=== PATIENT | male | born 1970 | race African-American/Black ===

== ENCOUNTER 2019-03-17 12:52 | Emergency (ER) | payer BC, OTHER ==
[2019-03-17 12:56] VITALS: BP 149/96; PULSE 121; TEMP 99; BMI 36.3
[2019-03-17] MEDS ORDERED: DEXAMETHASONE LIQUID 0.5 MG/5 ML PO ONE (13:13)
[2019-03-17] MEDS ORDERED: ACETAMINOPHEN 500 MG TABLET (FP) PO ONE (13:14)
[2019-03-17] MEDS ORDERED: ACETAMINOPHEN 500 MG TABLET (FP) ONE (13:21)
[2019-03-17] MEDS ORDERED: DEXAMETHASONE SOD PHOSPHATE 10 MG/1 ML VIAL ONE (13:21)
--- NOTE | 2019-03-17 13:51 | PDOC ---
History of Present Illness - General Chief Complaint: Sore Throat Stated Complaint: bodyaches/sore throat Time Seen by Provider: 03/17/19 13:02 - History of Present Illness Initial Comments: 03/17/19 13:49 48-year-old male with a past medical history of diabetes presents for worsening sore throat and fever x1 day Past History - Past Medical History Allergies/Adverse Reactions: Allergies Allergy/AdvReac Type Severity Reaction Status Date / Time No Known Allergies Allergy Verified 03/17/19 12:56 Home Medications: Ambulatory Orders Glimepiride [Amaryl] 4 mg PO BID 10/02/11 Insulin Glargine,Hum.rec.anlog [Lantus] 10 unit SQ AM 10/02/11 Insulin Regular [Novolin R Vial -] 0 unit SQ DAILY PRN 10/02/11 Olmesartan/Amlodipin/Hcthiazid [Tribenzor 40-5-12.5 mg Tablet] 1 each PO DAILY 10/02/11 Prasugrel Hydrochloride [Effient -] 10 mg PO DAILY 10/02/11 Cephalexin [Keflex] 500 mg PO TID #30 capsule 01/17/14 Penicillin V Potassium [Pen Vee K -] 500 mg PO QID #40 tablet 03/17/19 COPD: No Diabetes: Yes HTN: Yes - Surgical History Abdominal Surgery: Yes (HERNIA REPAIR) - Psycho Social/Smoking Cessation Hx Smoking Status: No Smoking History: Current every day smoker Have you smoked in the past 12 months: No Number of Cigarettes Smoked Daily: 5 Information on smoking cessation initiated: No Hx Alcohol Use: No Drug/Substance Use Hx: No Review of Systems - Review of Systems Constitutional: Yes: Fever HEENTM: Yes: Throat Pain, Difficulty Swallowing *Physical Exam - Vital Signs Last Vital Signs Temp Pulse Resp BP Pulse Ox 99 F 121 H 18 149/96 97 03/17/19 12:53 03/17/19 12:53 03/17/19 12:53 03/17/19 12:53 03/17/19 12:53 - Physical Exam 03/17/19 13:49 GENERAL: The patient is awake, alert, and fully oriented, in no acute distress. HEAD: Normal with no signs of trauma. EYES: sclera anicteric, conjunctiva clear. ENT: Ears normal tympanic membranes normal oropharynx erythemic without exudate uvula midline NECK: Normal range of motion LUNGS: Breath sounds equal, clear to auscultation bilaterally. No wheezes, and no crackles. HEART: S1 and S2 without murmur, rub or gallop. ABDOMEN: Soft, nontender, normoactive bowel sounds. No guarding, no rebound. No masses. EXTREMITIES: Normal range of motion, no edema. No clubbing or cyanosis. No cords, erythema, or tenderness. NEUROLOGICAL: Cranial nerves II through XII grossly intact. Normal speech, normal gait. PSYCH: Normal mood, normal affect. SKIN: Warm, Dry, normal turgor, no rashes or lesions noted. ED Treatment Course - Medications Given in the ED: ED Medications Discontinued Medications Generic Name Dose Route Start Last Admin Trade Name Tanner PRN Reason Stop Dose Admin Acetaminophen 1,000 mg 03/17/19 13:14 03/17/19 13:25 Tylenol - PO 03/17/19 13:15 1,000 mg ONCE ONE Administration Dexamethasone 10 mg 03/17/19 13:13 03/17/19 13:24 Decadron Liquid - PO 03/17/19 13:14 10 mg ONCE ONE Administration Medical Decision Making - Medical Decision Making 03/17/19 13:49 Negative rapid strep. History consistent with strep pharyngitis we will treat presumptively because of diabetes cussed use of steroids and pain control 1 dose of Decadron given patient will adjust insulin accordingly. Follow-up with primary care physician Discharge - Discharge Information Problems reviewed: Yes Clinical Impression/Diagnosis: Acute pharyngitis Condition: Stable Disposition: HOME - Admission No - Additional Discharge Information Prescriptions: Penicillin V Potassium [Pen Vee K -] 500 mg PO QID #40 tablet - Follow up/Referral Referrals: Stevan Collins MD [Staff Physician] - - Patient Discharge Instructions Additional Instructions: Please take the antibiotics as directed and finish the entire 10-day course. Return to the emergency room for worsening symptoms and without fail follow-up with your primary care physician in 2 to 3 days for further evaluation and treatment options. - Post Discharge Activity
== END 2019-03-17 13:56 | disposition home or self-care (01) ==
LOC: JERFT 12:52
DX: J02.9 Acute pharyngitis, unspecified (principal); I10 Essential (primary) hypertension; E10.9 Type 1 diabetes mellitus without complications; Z79.4 Long term (current) use of insulin
CPT/HCPCS: 87070; 87880; 99281-25

== ENCOUNTER 2019-03-18 13:53 | Inpatient (IN) | payer BC ==
[2019-03-18] MEDS ORDERED: PENICILLIN V POTASSIUM 250 MG/5 ML 100 ML BOTTLE PO ONE (15:34)
[2019-03-18] MEDS ORDERED: KETOROLAC TROMETHAMINE 30 MG/1 ML VIAL IM ONE (15:34)
[2019-03-18] MEDS ORDERED: KETOROLAC TROMETHAMINE 30 MG/1 ML VIAL ONE (15:39)
--- NOTE | 2019-03-18 18:32 | PDOC ---
History of Present Illness - General Chief Complaint: Sore Throat Stated Complaint: SORE THROAT Time Seen by Provider: 03/18/19 14:37 History Source: Patient Exam Limitations: No Limitations - History of Present Illness Initial Comments: 03/18/19 18:27 48 year old male with history of DM, HTN, and chol presents for sorethroat. Patient reports sorethroat x 5 days seen yesterday for the same given decadron and penvk but reports pain today preventing him from taking prescribed medication. Complaining of pain especially with swallowing. Denies difficulty breathing. Denies fever or chills Is this a multiple visit Asthma Patient?: No Timing/Duration: 1 week Severity: moderate Modifying Factors: improves with: medication Aspirin Received prior to arrival: Yes: no aspirin today Asa Contraindications(Core Measure): No: Allergy Beta Katya Given by EMS(Core Measure): No Beta Katya Taken at Home(Core Measure): No Beta Katya Not Indicated at this Time(Core Measure): No Past History - Travel Traveled outside of the country in the last 30 days: No Close contact w/someone who was outside of country & ill: No - Past Medical History Allergies/Adverse Reactions: Allergies Allergy/AdvReac Type Severity Reaction Status Date / Time No Known Allergies Allergy Verified 03/18/19 14:00 Home Medications: Ambulatory Orders Glimepiride [Amaryl] 4 mg PO BID 10/02/11 Insulin Glargine,Hum.rec.anlog [Lantus] 10 unit SQ AM 10/02/11 Insulin Regular [Novolin R Vial -] 0 unit SQ DAILY PRN 10/02/11 Olmesartan/Amlodipin/Hcthiazid [Tribenzor 40-5-12.5 mg Tablet] 1 each PO DAILY 10/02/11 Prasugrel Hydrochloride [Effient -] 10 mg PO DAILY 10/02/11 Cephalexin [Keflex] 500 mg PO TID #30 capsule 01/17/14 Penicillin V Potassium [Pen Vee K -] 500 mg PO QID #40 tablet 03/17/19 COPD: No Diabetes: Yes HTN: Yes - Surgical History Abdominal Surgery: Yes (HERNIA REPAIR) - Psycho Social/Smoking Cessation Hx Smoking Status: No Smoking History: Never smoked Have you smoked in the past 12 months: No Number of Cigarettes Smoked Daily: 5 Hx Alcohol Use: No Drug/Substance Use Hx: No Review of Systems - Review of Systems Able to Perform ROS?: Yes Is the patient limited Barbadian proficient: No Constitutional: No: Chills, Fever HEENTM: Yes: Throat Pain, Difficulty Swallowing. No: Nose Congestion Respiratory: No: Orthopnea, Shortness of Breath, Wheezing Cardiac (ROS): No: Chest Pain ABD/GI: No: Poor Appetite, Vomiting, Indigestion : No: Dysuria, Discharge, Testicular Pain Musculoskeletal: No: Joint Pain, Muscle Weakness Integumentary: No: Bruising, Erythema *Physical Exam - Vital Signs Last Vital Signs Temp Pulse Resp BP Pulse Ox 98.8 F 92 H 18 177/100 H 98 03/18/19 13:56 03/18/19 13:56 03/18/19 13:56 03/18/19 13:56 03/18/19 13:56 - Physical Exam General Appearance: Yes: Nourished, Appropriately Dressed HEENT: positive: Pharyngeal Erythema. negative: Tonsillar Exudate, Rhinorrhea Neck: positive: Supple. negative: Lymphadenopathy (R), Lymphadenopathy (L) Respiratory/Chest: positive: Lungs Clear Cardiovascular: positive: Regular Rhythm, Regular Rate Extremity: positive: Normal Capillary Refill Neurologic: positive: Fully Oriented ED Treatment Course - RADIOLOGY Radiology Studies Ordered: Category Date Time Status SOFT TISSUE NECK CT W/O CONTR [CT] Stat CT Scan 03/18/19 15:33 Taken - Medications Given in the ED: ED Medications Discontinued Medications Generic Name Dose Route Start Last Admin Trade Name Freq PRN Reason Stop Dose Admin Ketorolac Tromethamine 30 mg 03/18/19 15:34 03/18/19 15:44 Toradol Injection - IM 03/18/19 15:35 30 mg ONCE ONE Administration Penicillin V Potassium 500 mg 03/18/19 15:34 03/18/19 16:00 Pen Vee K Suspension - PO 03/18/19 15:35 500 mg ONCE ONE Administration Medical Decision Making - Medical Decision Making 03/18/19 18:31 48 year old male with history of DM, HTN, and chol presents for sorethroat. Patient reports sorethroat x 5 days seen yesterday for the same given decadron and penvk but reports pain today preventing him from taking prescribed medication. Complaining of pain especially with swallowing. Denies difficulty breathing. Denies fever or chills. Impresssion: Pharyngitis throat culture negative for strep Plan: toradol im pen vk 1 dose given in ed cat scan to r/o abscess 03/18/19 19:06 cat scan: epiglottitis 03/18/19 20:[address] Ocasio, recommend admission for observation of airway. Case reported off to Silvano Hernandez and Charge nurse Reji Discharge - Discharge Information Problems reviewed: Yes Clinical Impression/Diagnosis: Acute epiglottitis Qualifiers: Airway obstruction: without obstruction Qualified Code(s): J05.10 - Acute epiglottitis without obstruction Condition: Good Disposition: TRANSFER ACUTE CARE/OTHER HOSP - Admission Yes - Follow up/Referral Referrals: Oleg Strauss MD [Primary Care Provider] - Call tomorrow (follow up for epiglottis) - Patient Discharge Instructions Patient Printed Discharge Instructions: DI for Epiglottitis-Adult Additional Instructions: May gargle with warm salt water Drink plenty fluids Take ibuprofen and antibiotics as prescribed Return to emergency room for difficulty breathing - Post Discharge Activity Work/Back to School Note: Back to Work
--- NOTE | 2019-03-18 19:50 | PDOC ---
*Physical Exam - Vital Signs Last Vital Signs Temp Pulse Resp BP Pulse Ox 98.8 F 92 H 18 177/100 H 98 03/18/19 13:56 03/18/19 13:56 03/18/19 13:56 03/18/19 13:56 03/18/19 13:56 - Physical Exam General Appearance: Yes: Appropriately Dressed. No: Apparent Distress HEENT: positive: TMs Normal, Muffled/Hoarse voice, Pharyngeal Erythema. negative: Tonsillar Exudate, Tonsillar Erythema Neck: positive: Trachea midline, Supple. negative: Stridor Respiratory/Chest: positive: Lungs Clear, Normal Breath Sounds. negative: Respiratory Distress, Accessory Muscle Use ED Treatment Course - Medications Given in the ED: ED Medications Discontinued Medications Generic Name Dose Route Start Last Admin Trade Name Freq PRN Reason Stop Dose Admin Ketorolac Tromethamine 30 mg 03/18/19 15:34 03/18/19 15:44 Toradol Injection - IM 03/18/19 15:35 30 mg ONCE ONE Administration Penicillin V Potassium 500 mg 03/18/19 15:34 03/18/19 16:00 Pen Vee K Suspension - PO 03/18/19 15:35 500 mg ONCE ONE Administration ED Progress Note - Progress Note Progress Note: 03/18/19 19:47 Received signout from nurse practitioner Adama. Briefly this is a 48-year-old male past medical history of hypertension, diabetes, hyperlipidemia with second visit for evaluation of sore throat over the past 5 days. Patient had negative rapid strep testing and negative final throat culture. Patient with increased difficulty swallowing and sore throat. Patient received Decadron yesterday during his visit and is received Toradol today. CT of the neck reveals enlarged epiglottis compatible with epiglottitis. Moderately enlarged tonsils. Cannot rule out peritonsillar abscess in a noncontrast exam. Parapharyngeal spaces clear. Borderline to slightly enlarged bilateral lateral upper neck jugular chain lymph nodes Mild reversal of the cervical spine curvature and mild degenerative disc disease at C5-C6. Patient to be monitored overnight until Toradol is fully metabolized. If patient is still having difficulty swallowing at that time will need admission for ENT evaluation. 03/18/19 19:51 Medical Decision Making - Medical Decision Making 03/18/19 20:22 Case has been discussed with Dr. Lazcano who accepts patient for observation. Dr. Rodriguez is requesting patient receive another dose of steroids now prior to admission. 03/19/19 20:13 Discharge - Discharge Information Problems reviewed: Yes Clinical Impression/Diagnosis: Acute epiglottitis Qualifiers: Airway obstruction: without obstruction Qualified Code(s): J05.10 - Acute epiglottitis without obstruction Condition: Good - Admission Yes - Follow up/Referral - Patient Discharge Instructions - Post Discharge Activity
[2019-03-18] MEDS ORDERED: methylPREDNISolone NA SUCC 125 MG/2 ML VIAL IVPUSH ONE (20:23)
[2019-03-18] MEDS ORDERED: methylPREDNISolone NA SUCC 125 MG/2 ML VIAL ONE (21:22)
--- NOTE | 2019-03-18 22:06 | HP ---
Admitting History and Physical - Primary Care Physician PCP: Rio Lazcano - Admission History of Present Illness: 48 year old male with history of DM, HTN, and chol presents for sorethroat. Patient reports sorethroat x 5 days seen yesterday for the same given decadron and penvk but reports pain today preventing him from taking prescribed medication. Complaining of pain especially with swallowing. Denies difficulty breathing. Denies fever or chills - Smoking History Smoking history: Never smoked Have you smoked in the past 12 months: No Aproximately how many cigarettes per day: 5 - Alcohol/Substance Use Hx Alcohol Use: No Home Medications - Allergies Allergies/Adverse Reactions: Allergies Allergy/AdvReac Type Severity Reaction Status Date / Time No Known Allergies Allergy Verified 03/18/19 14:00 - Home Medications Home Medications: Ambulatory Orders Glimepiride [Amaryl] 4 mg PO BID 10/02/11 Penicillin V Potassium [Pen Vee K -] 500 mg PO QID #40 tablet 03/17/19 Amlodipine Besylate 5 mg PO DAILY 03/18/19 Metformin HCl [Glucophage] 500 mg PO ACDIN 03/18/19 Amoxicillin/Potassium Clav [Augmentin 875-125 Tablet] 1 each PO BID #14 tablet 03/20/19 Aspirin 81 mg PO DAILY 03/20/19 Basaglar Kwikpen U-100 25 units SQ ACDIN 03/20/19 Insulin Glargine,Hum.rec.anlog [Basaglar Kwikpen U-100] 15 units SQ ACHS Novolog Pen 15 units SQ BIDAC 03/20/19 Physical Examination Vital Signs: Vital Signs Temperature 98.8 F 03/18/19 13:56 Pulse Rate 92 H 03/18/19 13:56 Respiratory Rate 18 03/18/19 13:56 Blood Pressure 177/100 H 03/18/19 13:56 O2 Sat by Pulse Oximetry (%) 98 03/18/19 21:43 Constitutional: Yes: No Distress HENT: Yes: Atraumatic Neck: Yes: Supple Cardiovascular: Yes: Regular Rate and Rhythm Respiratory: Yes: CTA Bilaterally Gastrointestinal: Yes: Normal Bowel Sounds Extremities: Yes: WNL Neurological: Yes: Alert, Oriented Imaging - Results Cat Scan: Report Reviewed Problem List - Problems (1) Acute epiglottitis Assessment/Plan: iv abx iv steroids npo id consult ent consult Code(s): J05.10 - ACUTE EPIGLOTTITIS WITHOUT OBSTRUCTION Qualifiers: Airway obstruction: without obstruction Qualified Code(s): J05.10 - Acute epiglottitis without obstruction (2) Acute pharyngitis Assessment/Plan: iv abx Code(s): J02.9 - ACUTE PHARYNGITIS, UNSPECIFIED Assessment/Plan Laboratory Results - last 24 hr 03/20/19 03/21/19 03/21/19 21:58 01:39 06:22 POC Glucometer 445 248 207 03/21/19 11:18 POC Glucometer 210
[2019-03-18] MEDS: SODIUM CHLORIDE 1,000 ML IV SCH (23:00)
[2019-03-19] MEDS ORDERED: methylPREDNISolone NA SUCC 40 MG/1 ML VIAL ONE (02:37)
[2019-03-19] MEDS ORDERED: ACETAMINOPHEN INJECTION 100 ML IVPB ONE ×2 (02:38→09:19)
[2019-03-19] MEDS: methylPREDNISolone NA SUCC 40 MG/1 ML VIAL IVPUSH SCH ×4 (03:15→20:54)
[2019-03-19] MEDS: ACETAMINOPHEN 1000 MG/100 ML VIAL (NON FORMULARY) IVPB PRN ×3 (04:08→20:53)
[2019-03-19] MEDS ORDERED: amLODIPine BESYLATE 5 MG TABLET (FP) PO ONE (14:22)
[2019-03-19] MEDS ORDERED: amLODIPine BESYLATE 5 MG TABLET (FP) ONE (14:22)
[2019-03-19] MEDS: SODIUM CHLORIDE 1,000 ML IV SCH ×2 (15:44→23:55)
--- NOTE | 2019-03-19 17:03 | PN ---
Progress Note, Physician History of Present Illness: feeling better - Current Medication List Current Medications: Active Medications Acetaminophen (Ofirmev Injection -) 1,000 mg IVPB Q6H PRN PRN Reason: pain/fever Last Admin: 03/19/19 10:00 Dose: 1,000 mg Sodium Chloride (Normal Saline -) 1,000 mls @ 75 mls/hr IV ASDIR MICHAEL Last Admin: 03/19/19 15:44 Dose: 75 mls/hr Methylprednisolone Sodium Succinate (Solu-Medrol -) 60 mg IVPUSH Q6H-IV MICHAEL Last Admin: 03/19/19 15:44 Dose: 60 mg - Objective Vital Signs: Vital Signs Temperature 97.9 F 03/19/19 14:06 Pulse Rate 76 03/19/19 15:09 Respiratory Rate 15 03/19/19 14:06 Blood Pressure 156/97 03/19/19 15:57 O2 Sat by Pulse Oximetry (%) 97 03/19/19 09:00 Problem List - Problems (1) Acute epiglottitis Assessment/Plan: iv abx iv steroids npo id consult ent consult Code(s): J05.10 - ACUTE EPIGLOTTITIS WITHOUT OBSTRUCTION Qualifiers: Airway obstruction: without obstruction Qualified Code(s): J05.10 - Acute epiglottitis without obstruction
[2019-03-19 17:12] VITALS: BMI 35.2
--- NOTE | 2019-03-19 18:40 | CON.ID ---
Consult Consult Specialty:: infectious diseases Referred by:: Reason for Consultation:: epiglottitis,swelling of the throat,sob - History of Present Illness Chief Complaint: unable to breath pain and swelling of the throat left side History of Present Illness: 48-year-old male past medical history of hypertension, diabetes, hyperlipidemia with second visit for evaluation of sore throat over the past 5 days. Patient had negative rapid strep testing and negative final throat culture. Patient with increased difficulty swallowing and sore throat. He came to ER, strep was negative and he was sent home on VK. At work on Monday , he felt his throat was closing off and neck was swollen. He returned to [facility], CT scan of neck positive for swollen epiglottis. He was admitted for IV ABX and steroids. He is feeling better but still feels pain and swelling on the left side. patient mentions his rt side is worse than the left side. - History Source History Provided By: Patient Limitations to Obtaining History: No Limitations - Alcohol/Substance Use Hx Alcohol Use: No - Smoking History Smoking history: Current every day smoker Have you smoked in the past 12 months: Yes Aproximately how many cigarettes per day: 4 Home Medications - Allergies Allergies/Adverse Reactions: Allergies Allergy/AdvReac Type Severity Reaction Status Date / Time No Known Allergies Allergy Verified 03/18/19 14:00 - Home Medications Home Medications: Ambulatory Orders Glimepiride [Amaryl] 4 mg PO BID 10/02/11 Penicillin V Potassium [Pen Vee K -] 500 mg PO QID #40 tablet 03/17/19 Amlodipine Besylate 5 mg PO DAILY 03/18/19 Metformin HCl [Glucophage] 1,000 mg PO BID 03/18/19 Review of Systems - Review of Systems Constitutional: reports: No Symptoms Eyes: reports: No Symptoms HENT: reports: No Symptoms Neck: reports: Lumps, Swollen Glands Cardiovascular: reports: No Symptoms Respiratory: reports: No Symptoms Gastrointestinal: reports: No Symptoms Genitourinary: reports: No Symptoms Musculoskeletal: reports: No Symptoms Integumentary: reports: No Symptoms Neurological: reports: No Symptoms Endocrine: reports: No Symptoms Hematology/Lymphatic: reports: No Symptoms Psychiatric: reports: No Symptoms Physical Exam Vital Signs: Vital Signs Temperature 98.2 F 03/19/19 17:12 Pulse Rate 85 01/14/20 17:12 Respiratory Rate 19 03/19/19 17:12 Blood Pressure 145/108 H 03/19/19 17:12 O2 Sat by Pulse Oximetry (%) 97 03/19/19 09:00 Constitutional: Yes: Calm, Mild Distress Eyes: Yes: Conjunctiva Clear HENT: Yes: Pharyngeal Erythema, Other (epiglottitis) Neck: Yes: Supple, Trachea Midline Cardiovascular: Yes: Regular Rate and Rhythm Respiratory: Yes: Regular, CTA Bilaterally Gastrointestinal: Yes: Normal Bowel Sounds, Soft Musculoskeletal: Yes: WNL Extremities: Yes: WNL Neurological: Yes: Alert, Oriented Psychiatric: Yes: Alert, Oriented Imaging - Results Cat Scan: Report Reviewed, Image Reviewed Assessment/Plan Problem List - Problems (1) Acute epiglottitis Code(s): J05.10 - ACUTE EPIGLOTTITIS WITHOUT OBSTRUCTION Qualifiers: Airway obstruction: without obstruction Qualified Code(s): J05.10 - Acute epiglottitis without obstruction throat pain plan will start patient on abx await for ent rest as per the team
[2019-03-19] MEDS ORDERED: PIPERACILLIN/TAZOBACTAM 3.375 GM VIAL IVPB ONE (18:50)
[2019-03-19] MEDS ORDERED: DEXTROSE 5%-WATER - 50 ML IVPB ONE (18:50)
[2019-03-19] MEDS: PIPERACILLIN/TAZOB 3.375 GM 3.375 GM in DEXTROSE 5%-WATER - 50 ML IVPB SCH (18:53)
[2019-03-20] MEDS ORDERED: PIPERACILLIN/TAZOBACTAM 3.375 GM VIAL IVPB ONE ×3 (01:32→19:37)
[2019-03-20] MEDS ORDERED: DEXTROSE 5%-WATER - 50 ML IVPB ONE ×2 (01:32→19:37)
[2019-03-20] MEDS ORDERED: hydrALAZINE HCL 10 MG TABLET PO ONE (01:45)
[2019-03-20] MEDS: PIPERACILLIN/TAZOB 3.375 GM 3.375 GM in DEXTROSE 5%-WATER - 50 ML IVPB SCH ×3 (02:01→19:52)
[2019-03-20] MEDS: methylPREDNISolone NA SUCC 40 MG/1 ML VIAL IVPUSH SCH ×3 (02:01→14:10)
[2019-03-20] MEDS: ACETAMINOPHEN 1000 MG/100 ML VIAL (NON FORMULARY) IVPB PRN (07:23)
[2019-03-20] MEDS ORDERED: DEXTROSE 5%-WATER - 100 ML IVPB ONE (09:10)
--- NOTE | 2019-03-20 09:13 | CON.ENT ---
Consult Consult Specialty:: ENT Reason for Consultation:: Sore throat/trouble swallowing - History of Present Illness Chief Complaint: Progressive sore throat/throat swelling History of Present Illness: 48 yo male in [place] until this past weekend when he developed a sore throat with trouble swallowing and swollen feeling in his throat. He came to ER, strep was negative and he was sent home on Pen VK. At work on Monday , he felt his throat was closing off and neck was swollen. He returned to [facility], CT scan of neck positive for swollen epiglottis. He was admitted for IV ABX and steroids. He is feeling better but still feels pain and swelling on the left side. - History Source History Provided By: Patient Limitations to Obtaining History: No Limitations - Past Medical History Endocrine: Yes: Diabetes Mellitus - Alcohol/Substance Use Hx Alcohol Use: No - Smoking History Smoking history: Current every day smoker Have you smoked in the past 12 months: Yes Aproximately how many cigarettes per day: 4 Home Medications - Allergies Allergies/Adverse Reactions: Allergies Allergy/AdvReac Type Severity Reaction Status Date / Time No Known Allergies Allergy Verified 03/18/19 14:00 - Home Medications Home Medications: Ambulatory Orders Glimepiride [Amaryl] 4 mg PO BID 10/02/11 Penicillin V Potassium [Pen Vee K -] 500 mg PO QID #40 tablet 03/17/19 Amlodipine Besylate 5 mg PO DAILY 03/18/19 Metformin HCl [Glucophage] 1,000 mg PO BID 03/18/19 Review of Systems - Review of Systems HENT: reports: Difficult Swallowing, Throat Pain Neck: reports: Swollen Glands, Tenderness Respiratory: reports: No Symptoms Physical Exam-ENT Vital Signs: Vital Signs Temperature 98 F 03/20/19 06:00 Pulse Rate 82 03/20/19 06:00 Respiratory Rate 03/20/19 06:00 Blood Pressure 145/107 H 03/20/19 06:00 O2 Sat by Pulse Oximetry (%) 97 03/19/19 21:00 Constitutional: Yes: Well Nourished, No Distress, Calm Head: Yes: WNL Face: Yes: WNL Eyes: Yes: WNL, EOM Intact Nose: Yes: Boggy, Pale Nasal Passage: Yes: Pale Oral/Pharynx: Yes: Other (No exudate or edema) Neck: Yes: Lymphadenopathy, Tenderness Respiratory: Yes: WNL Musculoskeletal: Yes: WNL Extremities: Yes: WNL Neurological: Yes: Cran Nerves II-XII Intact Imaging - Results Cat Scan: Report Reviewed, Image Reviewed Problem List - Problems (1) Acute epiglottitis Assessment/Plan: Pt with acute epiglottis with edema of lingual surface, no airway compromise. He is feeling better with improvement of symptoms since on IV Abx and steroids. Would continue IV for 24 hours and switch to PO antibiotics and steroids as per ID if he continues to improve. Follow-up with ENT as outpatient in 1 week. Code(s): J05.10 - ACUTE EPIGLOTTITIS WITHOUT OBSTRUCTION Qualifiers: Airway obstruction: without obstruction Qualified Code(s): J05.10 - Acute epiglottitis without obstruction Procedure Note Procedure: FIBEROPTIC FLEXIBLE LARYNGOSCOPY: After obtaining verbal consent, topical anesthetic spray intra nasally. Scope passed into nasopharynx, non sinus pathology noted. Edema of lingual surface of the epiglottis (L>R) with left sided ulceration. Laryngeal side normal with patent airway. Normal VC motion noted. No other airway edema noted. Pt tolerated procedure well.
--- NOTE | 2019-03-20 09:26 | PN ---
Progress Note, Physician History of Present Illness: patient stable no new issues swelling improving - Current Medication List Current Medications: Active Medications Sodium Chloride (Normal Saline -) 1,000 mls @ 75 mls/hr IV ASDIR MICHAEL Last Admin: 03/19/19 23:55 Dose: Not Given Piperacillin Sod/Tazobactam (Sod 3.375 gm/ Dextrose) 50 mls @ 100 mls/hr IVPB Q8H-IV MICHAEL; Protocol Last Admin: 03/20/19 02:01 Dose: 100 mls/hr Methylprednisolone Sodium Succinate (Solu-Medrol -) 60 mg IVPUSH Q6H-IV MICHAEL Last Admin: 03/20/19 02:01 Dose: 60 mg - Objective Vital Signs: Vital Signs Temperature 98 F 03/20/19 06:00 Pulse Rate 82 03/20/19 06:00 Respiratory Rate 20 03/20/19 06:00 Blood Pressure 145/107 H 03/20/19 06:00 O2 Sat by Pulse Oximetry (%) 97 03/19/19 21:00 Constitutional: Yes: No Distress, Calm Cardiovascular: Yes: S1, S2 Respiratory: Yes: Regular, CTA Bilaterally Gastrointestinal: Yes: Normal Bowel Sounds, Soft Musculoskeletal: Yes: WNL Extremities: Yes: WNL Neurological: Yes: Alert, Oriented Psychiatric: Yes: Alert, Oriented Assessment/Plan Problem List - Problems (1) Acute epiglottitis Code(s): J05.10 - ACUTE EPIGLOTTITIS WITHOUT OBSTRUCTION Qualifiers: Airway obstruction: without obstruction Qualified Code(s): J05.10 - Acute epiglottitis without obstruction throat pain plan ct abx steroids as per ent rest as per the team
[2019-03-20] MEDS: ASPIRIN 81 MG CHEWABLE TABLETS PO SCH (12:28)
[2019-03-20] MEDS: amLODIPine BESYLATE 5 MG TABLET (FP) PO SCH (12:28)
[2019-03-20] MEDS ORDERED: INSULIN (NOVOLOG) ASPART 100 UNITS/ML 10ML VIAL SQ ONE (13:15)
[2019-03-20] MEDS ORDERED: ACETAMINOPHEN 325 MG TABLET (FP) PO PRN (13:59)
[2019-03-20] MEDS ORDERED: metFORMIN HCL 500 MG TABLET (FP) PO SCH (16:30)
[2019-03-20] MEDS ORDERED: INSULIN (LEVEMIR) 100 UNITS/ML UNITS SQ SCH (16:30)
[2019-03-20] MEDS ORDERED: PT OWN MED DRAWER 7, Y5N ONE (17:26)
[2019-03-20] MEDS: GLIMEPIRIDE 4 MG TABLET PO SCH (17:30)
--- NOTE | 2019-03-20 18:44 | PN ---
Progress Note, Physician History of Present Illness: feeling better - Current Medication List Current Medications: Active Medications Acetaminophen (Tylenol -) 650 mg PO Q6H PRN PRN Reason: PAIN 1-6 Last Admin: 03/20/19 14:08 Dose: 650 mg Amlodipine Besylate (Norvasc -) 5 mg PO DAILY [facility] Last Admin: 03/20/19 12:28 Dose: 5 mg Aspirin (Asa -) 81 mg PO DAILY [facility] Last Admin: 03/20/19 12:28 Dose: 81 mg Glimepiride (Amaryl -) 4 mg PO BIDAC [facility] Last Admin: 03/20/19 17:30 Dose: 4 mg Piperacillin Sod/Tazobactam (Sod 3.375 gm/ Dextrose) 50 mls @ 100 mls/hr IVPB Q8H-IV [facility]; Protocol Last Admin: 03/20/19 10:15 Dose: 100 mls/hr Insulin Aspart (Novolog Vial Sliding Scale -) 1 vial SQ ACHS [facility]; Protocol Metformin HCl (Glucophage -) 500 mg PO ACDIN [facility] Last Admin: 03/20/19 17:30 Dose: 500 mg - Objective Vital Signs: Vital Signs Temperature 98.6 F 03/20/19 14:26 Pulse Rate 93 H 03/20/19 14:26 Respiratory Rate 20 03/20/19 14:26 Blood Pressure 147/90 03/20/19 14:26 O2 Sat by Pulse Oximetry (%) 97 03/20/19 09:00 Constitutional: Yes: No Distress HENT: Yes: Atraumatic Cardiovascular: Yes: Regular Rate and Rhythm Respiratory: Yes: CTA Bilaterally Gastrointestinal: Yes: Normal Bowel Sounds Extremities: Yes: WNL Edema: No Neurological: Yes: Alert, Oriented Problem List - Problems (1) Acute epiglottitis Assessment/Plan: iv abx iv steroids soft diet id consult ent consult Code(s): J05.10 - ACUTE EPIGLOTTITIS WITHOUT OBSTRUCTION Qualifiers: Airway obstruction: without obstruction Qualified Code(s): J05.10 - Acute epiglottitis without obstruction (2) Acute pharyngitis Assessment/Plan: abcess of tonsil doing well eating soft diet will stop steroids Code(s): J02.9 - ACUTE PHARYNGITIS, UNSPECIFIED
[2019-03-20] MEDS: INSULIN SLIDING SCALE (NOVOLOG) 1 VIAL SQ SCH (22:01)
[2019-03-21] MEDS: PATIENT'S OWN MEDICATION (NON-FORMULARY) (Insulin Glargine,Hum.Rec.Anlog [Basaglar Kwikpen SQ SCH (01:16)
[2019-03-21] MEDS ORDERED: PIPERACILLIN/TAZOBACTAM 3.375 GM VIAL IVPB ONE ×2 (01:19→08:59)
[2019-03-21] MEDS ORDERED: DEXTROSE 5%-WATER - 50 ML IVPB ONE ×2 (01:20→08:59)
[2019-03-21] MEDS: PIPERACILLIN/TAZOB 3.375 GM 3.375 GM in DEXTROSE 5%-WATER - 50 ML IVPB SCH ×2 (01:33→11:14)
[2019-03-21] MEDS: INSULIN SLIDING SCALE (NOVOLOG) 1 VIAL SQ SCH ×2 (06:24→11:23)
[2019-03-21] MEDS: GLIMEPIRIDE 4 MG TABLET PO SCH (06:24)
[2019-03-21] MEDS: ASPIRIN 81 MG CHEWABLE TABLETS PO SCH (11:14)
[2019-03-21] MEDS: amLODIPine BESYLATE 5 MG TABLET (FP) PO SCH (11:14)
--- NOTE | 2019-03-21 11:58 | DS ---
Physical Examination Vital Signs: Vital Signs Temperature 98.6 F 03/21/19 05:00 Pulse Rate 60 03/21/19 05:00 Respiratory Rate 18 03/21/19 05:00 Blood Pressure 144/81 03/21/19 05:00 O2 Sat by Pulse Oximetry (%) 97 03/20/19 21:00 Constitutional: Yes: No Distress HENT: Yes: Atraumatic Neck: Yes: Supple Cardiovascular: Yes: Regular Rate and Rhythm Respiratory: Yes: CTA Bilaterally Gastrointestinal: Yes: Normal Bowel Sounds Extremities: Yes: WNL Neurological: Yes: Alert, Oriented Discharge Summary Problems reviewed: Yes Reason For Visit: ACUTE EPIGIOTITIS Current Active Problems Acute epiglottitis (Acute) abcess of tonsils Condition: Good - Instructions Referrals: Oleg Strauss MD [Primary Care Provider] - Silvano Juan MD [Staff Physician] - Disposition: HOME - Home Medications Comprehensive Discharge Medication List: Ambulatory Orders Glimepiride [Amaryl] 4 mg PO BID 10/02/11 Penicillin V Potassium [Pen Vee K -] 500 mg PO QID #40 tablet 03/17/19 Amlodipine Besylate 5 mg PO DAILY 03/18/19 Metformin HCl [Glucophage] 500 mg PO ACDIN 03/18/19 Amoxicillin/Potassium Clav [Augmentin 875-125 Tablet] 1 each PO BID #14 tablet 03/20/19 Aspirin 81 mg PO DAILY 03/20/19 Basaglar Kwikpen U-100 25 units SQ ACDIN 03/20/19 Insulin Glargine,Hum.rec.anlog [Basaglar Kwikpen U-100] 15 units SQ ACHS Novolog Pen 15 units SQ BIDAC 03/20/19
--- NOTE | 2019-03-21 12:42 | PN ---
Progress Note, Physician History of Present Illness: stable swelling mininmal feels good able to swallow - Current Medication List Current Medications: Active Medications Acetaminophen (Tylenol -) 650 mg PO Q6H PRN PRN Reason: PAIN 1-6 Last Admin: 03/20/19 14:08 Dose: 650 mg Amlodipine Besylate (Norvasc -) 5 mg PO DAILY [facility] Last Admin: 03/21/19 11:14 Dose: 5 mg Aspirin (Asa -) 81 mg PO DAILY [facility] Last Admin: 03/21/19 11:14 Dose: 81 mg Glimepiride (Amaryl -) 4 mg PO BIDAC [facility] Last Admin: 03/21/19 06:24 Dose: 4 mg Piperacillin Sod/Tazobactam (Sod 3.375 gm/ Dextrose) 50 mls @ 100 mls/hr IVPB Q8H-IV [facility]; Protocol Last Admin: 03/21/19 11:14 Dose: 100 mls/hr Insulin Aspart (Novolog Vial Sliding Scale -) 1 vial SQ ACHS [facility]; Protocol Last Admin: 03/21/19 11:23 Dose: 6 units Metformin HCl (Glucophage -) 500 mg PO ACDIN [facility] Last Admin: 03/20/19 17:30 Dose: 500 mg - Objective Vital Signs: Vital Signs Temperature 98.6 F 03/21/19 05:00 Pulse Rate 60 03/21/19 05:00 Respiratory Rate 18 03/21/19 05:00 Blood Pressure 144/81 03/21/19 05:00 O2 Sat by Pulse Oximetry (%) 97 03/20/19 21:00 Constitutional: Yes: No Distress, Calm Cardiovascular: Yes: S1, S2 Respiratory: Yes: Regular, CTA Bilaterally Gastrointestinal: Yes: Normal Bowel Sounds, Soft Musculoskeletal: Yes: WNL Extremities: Yes: WNL Neurological: Yes: Alert, Oriented Psychiatric: Yes: Alert, Oriented Assessment/Plan Problem List - Problems (1) Acute epiglottitis Code(s): J05.10 - ACUTE EPIGLOTTITIS WITHOUT OBSTRUCTION Qualifiers: Airway obstruction: without obstruction Qualified Code(s): J05.10 - Acute epiglottitis without obstruction throat pain plan can change to oral augmentin 875mg po bid for 5 more days stable
[2019-03-21 18:12] VITALS: BP 149/106; PULSE 74; TEMP 98.1
== END 2019-03-21 14:09 | disposition home or self-care (01) | DRG 153 ==
LOC: JER 13:53 → JERFT 13:53 → JERBED 20:22 → OBSVTOIN 22:07 → J7W 03-19 17:13
PROVIDERS: ADMIT Internal Medicine; ATTEND Internal Medicine
PROC: 0CJS8ZZ Inspection of Larynx, Via Natural or Artificial Opening Endoscopic (ICD-10-PCS; principal; 2019-03-20)
DX: J05.10 Acute epiglottitis without obstruction (principal); J02.9 Acute pharyngitis, unspecified; I10 Essential (primary) hypertension; E11.9 Type 2 diabetes mellitus without complications; E78.5 Hyperlipidemia, unspecified; F17.210 Nicotine dependence, cigarettes, uncomplicated; J38.7 Other diseases of larynx
CPT/HCPCS: 70490-TC; 82962; 99285-25; G0378; J0131

== ENCOUNTER 2021-07-23 04:11 | Inpatient (IN) | payer SELFPAY ==
[2021-07-23] MEDS ORDERED: ACETAMINOPHEN 1000 MG/100 ML BAG IVPB ONE ×2 (04:44→11:28)
[2021-07-23] MEDS ORDERED: ACETAMINOPHEN INJECTION 100 ML IVPB ONE ×2 (04:50→11:31)
[2021-07-23 05:13] LABS: BASO % 1.5 % (0-2.0); EOS % 1.4 % (0-4.5); LYMPH % 20.4 % (8-40); MCH 28.7 pg (25.7-33.7); MCHC 33.4 g/dl (32.0-35.9); MEAN CELL VOLUME 85.9 fl (80-96); MEAN PLT VOLUME 9.3 fl (7.5-11.1); MONO % 12.9 % (3.8-10.2); NEUT % 63.8 % (42.8-82.8); PLATELET COUNT 185 10^3/uL (134-434); RBC 5.95 M/mm3 (4.00-5.60); RDW 14.9 % (11.9-15.9); WHITE BLOOD COUNT 6.1 K/mm3 (4.0-10.0)
[2021-07-23] MEDS ORDERED: FAMOTIDINE 20 MG/50 ML IVPB 50 ML IVPB ONE (05:28)
[2021-07-23] MEDS ORDERED: MAG HYDROX/AL HYDROX/SIMETH 30 ML UNIT-DOSE CUP PO ONE (05:28)
[2021-07-23] MEDS ORDERED: MAG HYDROX/AL HYDROX/SIMETH 30 ML UNIT-DOSE CUP ONE (05:30)
[2021-07-23 05:33] LABS: CALCIUM 7.3 mg/dL (8.5-10.1)
[2021-07-23 05:34] LABS: BLOOD UREA NITROGEN 8.4 mg/dL (7-18); MAGNESIUM 1.7 mg/dL (1.8-2.4)
[2021-07-23 05:37] LABS: CREATININE 0.7 mg/dL (0.55-1.3)
[2021-07-23 05:38] LABS: BILIRUBIN,TOTAL 1.2 mg/dL (0.2-1); TOT PROT 6.2 g/dl (6.4-8.2)
[2021-07-23] MEDS ORDERED: SODIUM CHLORIDE 0.9% 500 ML INFUS.BAG IV ONE (06:00)
[2021-07-23] MEDS ORDERED: POTASSIUM CHLORIDE TABS 20 MEQ TABLET.ER (FP) PO ONE ×2 (06:01→06:08)
[2021-07-23] MEDS ORDERED: FAMOTIDINE 20 MG/50 ML IVPB 20 MG/50 ML MG IVPB ONE (06:02)
[2021-07-23] MEDS ORDERED: FAMOTIDINE 10 MG/ML VIAL IVPB ONE (06:09)
[2021-07-23 06:51] LABS: URINE APPEARANCE CLEAR; URINE BILIRUBIN NEGATIVE (NEGATIVE); URINE COLOR YELLOW; URINE GLUCOSE (UA) 3+ (NEGATIVE); URINE KETONE NEGATIVE (NEGATIVE); URINE LEUK ESTERASE NEGATIVE (NEGATIVE); URINE NITRITE NEGATIVE (NEGATIVE); URINE PROTEIN NEGATIVE (NEGATIVE)
[2021-07-23] MEDS ORDERED: LACTATED RINGERS SOLUTION 1,000 ML/1,000 ML INFUS.BAG IV SCH (14:45)
[2021-07-23 14:56] LABS: BILIRUBIN,DIRECT 0.3 mg/dL (0.0-0.2)
[2021-07-23] MEDS ORDERED: SODIUM CHLORIDE 1,000 ML IV SCH (15:15)
[2021-07-23 18:43] LABS: ALBUMIN 3.4 g/dl (3.4-5.0)
[2021-07-23 18:46] LABS: CREATININE 0.9 mg/dL (0.55-1.3)
[2021-07-23 18:47] LABS: BILIRUBIN,TOTAL 1.2 mg/dL (0.2-1); TOT PROT 7.2 g/dl (6.4-8.2)
[2021-07-23] MEDS: INSULIN SLIDING SCALE (NOVOLOG) 1 VIAL SQ SCH ×2 (18:51→21:11)
[2021-07-23 18:52] LABS: CALCIUM 8.6 mg/dL (8.5-10.1)
[2021-07-23] MEDS: SODIUM CHLORIDE 0.45% 1,000 ML IV SCH (18:52)
[2021-07-24 00:55] VITALS: BMI 32.1
[2021-07-24] MEDS: INSULIN SLIDING SCALE (NOVOLOG) 1 VIAL SQ SCH ×4 (06:35→22:27)
[2021-07-24] MEDS: SODIUM CHLORIDE 0.45% 1,000 ML IV SCH (06:35)
[2021-07-24] MEDS ORDERED: ACETAMINOPHEN 1000 MG/100 ML BAG IVPB ONE (07:30)
[2021-07-24] MEDS: PANTOPRAZOLE SODIUM 40 MG VIAL IVPUSH SCH (09:03)
[2021-07-24 09:40] LABS: BASO % 0.6 % (0-2.0); EOS % 1.8 % (0-4.5); HEMATOCRIT 50.7 % (35.4-49); LYMPH % 27.1 % (8-40); MCH 28.4 pg (25.7-33.7); MCHC 33.5 g/dl (32.0-35.9); MEAN CELL VOLUME 84.7 fl (80-96); MEAN PLT VOLUME 9.1 fl (7.5-11.1); MONO % 10.8 % (3.8-10.2); NEUT % 59.7 % (42.8-82.8); PLATELET COUNT 174 10^3/uL (134-434); RBC 5.99 M/mm3 (4.00-5.60); RDW 15.1 % (11.9-15.9); WHITE BLOOD COUNT 4.2 K/mm3 (4.0-10.0)
[2021-07-24 10:00] LABS: BLOOD UREA NITROGEN 8.4 mg/dL (7-18); CALCIUM 8.7 mg/dL (8.5-10.1)
[2021-07-24 10:01] LABS: ALBUMIN 3.4 g/dl (3.4-5.0)
[2021-07-24 10:02] LABS: CREATININE 0.7 mg/dL (0.55-1.3)
[2021-07-24 10:03] LABS: BILIRUBIN,DIRECT 0.3 mg/dL (0.0-0.2)
[2021-07-24 10:04] LABS: BILIRUBIN,TOTAL 1.4 mg/dL (0.2-1); TOT PROT 7.3 g/dl (6.4-8.2)
[2021-07-24] MEDS: amLODIPine BESYLATE 5 MG TABLET (FP) PO SCH (11:59)
[2021-07-24] MEDS ORDERED: ONDANSETRON 4 MG/2 ML VIAL IVPUSH PRN (12:50)
[2021-07-24] MEDS: POLYETHYLENE GLYCOL (HEALTHYLAX) 3350 17 GM PACKET PO SCH ×2 (13:40→22:28)
[2021-07-25] MEDS: INSULIN SLIDING SCALE (NOVOLOG) 1 VIAL SQ SCH ×2 (06:53→11:03)
[2021-07-25] MEDS: POLYETHYLENE GLYCOL (HEALTHYLAX) 3350 17 GM PACKET PO SCH (06:53)
[2021-07-25 07:29] VITALS: TEMP 97.9
[2021-07-25 08:56] VITALS: BP 144/95; PULSE 84
[2021-07-25] MEDS: amLODIPine BESYLATE 5 MG TABLET (FP) PO SCH (09:03)
[2021-07-25] MEDS: PANTOPRAZOLE SODIUM 40 MG VIAL IVPUSH SCH (09:05)
[2021-07-25 09:06] LABS: BASO % 0.6 % (0-2.0); EOS % 1.9 % (0-4.5); HEMATOCRIT 51.2 % (35.4-49); HEMOGLOBIN 17.1 GM/dL (11.7-16.9); LYMPH % 29.6 % (8-40); MCH 28.3 pg (25.7-33.7); MCHC 33.4 g/dl (32.0-35.9); MEAN CELL VOLUME 84.7 fl (80-96); MONO % 10.6 % (3.8-10.2); NEUT % 57.3 % (42.8-82.8); PLATELET COUNT 175 10^3/uL (134-434); RBC 6.05 M/mm3 (4.00-5.60); RDW 14.8 % (11.9-15.9); WHITE BLOOD COUNT 4.6 K/mm3 (4.0-10.0)
[2021-07-25 09:18] LABS: ALBUMIN 3.5 g/dl (3.4-5.0); BLOOD UREA NITROGEN 8.3 mg/dL (7-18); MAGNESIUM 2.4 mg/dL (1.8-2.4)
[2021-07-25 09:21] LABS: CREATININE 0.8 mg/dL (0.55-1.3)
[2021-07-25 09:23] LABS: TOT PROT 7.5 g/dl (6.4-8.2)
[2021-07-25 09:24] LABS: BILIRUBIN,TOTAL 1.4 mg/dL (0.2-1)
[2021-07-25] MEDS ORDERED: BISACODYL 5 MG TABLET.DR (FP) PO ONE (11:08)
[2021-07-25] MEDS ORDERED: ATORVASTATIN CA 20 MG TABLET (FP) PO SCH (22:00)
== END 2021-07-25 12:48 | disposition home or self-care (01) | DRG 282 ==
LOC: JER 04:11 → JERBED 13:23 → J5S 18:19 → UNDODISIN 07-25 12:48
PROVIDERS: ADMIT Internal Medicine; ATTEND Internal Medicine
DX: K85.80 Other acute pancreatitis without necrosis or infection (principal); I10 Essential (primary) hypertension; E78.5 Hyperlipidemia, unspecified; E80.6 Other disorders of bilirubin metabolism; Z86.19 Personal history of other infectious and parasitic diseases; E66.9 Obesity, unspecified; Z68.32 Body mass index [BMI] 32.0-32.9, adult; K42.9 Umbilical hernia without obstruction or gangrene; K86.9 Disease of pancreas, unspecified; K59.00 Constipation, unspecified; E11.65 Type 2 diabetes mellitus with hyperglycemia
CPT/HCPCS: 36415; 74176-TC; 74178-TC; 76705-TC; 80048; 80053; 80061; 80076; 81003; 82150; 82248; 82962; 83036; 83690; 83735; 85025; 86140; 86301; 87086; 93005; 93010; 99285-25; C9803-CS; Q9967; U0003; U0005

== ENCOUNTER 2022-06-16 13:29 | Emergency (ER) | payer BC ==
[2022-06-16 13:42] VITALS: RESP 18; TEMP 98.2; BMI 34.0
[2022-06-16 16:37] LABS: BASO % 0.6 % (0-2.0); EOS % 1.4 % (0-4.5); HEMATOCRIT 49.1 % (35.4-49); HEMOGLOBIN 16.4 GM/dL (11.7-16.9); LYMPH % 33.7 % (8-40); MCH 28.3 pg (25.7-33.7); MCHC 33.5 g/dl (32.0-35.9); MEAN CELL VOLUME 84.5 fl (80-96); MEAN PLT VOLUME 9.5 fl (7.5-11.1); MONO % 15.9 % (3.8-10.2); NEUT % 48.4 % (42.8-82.8); PLATELET COUNT 210 10^3/uL (134-434); RBC 5.81 M/mm3 (4.00-5.60); RDW 15.1 % (11.9-15.9); WHITE BLOOD COUNT 5.4 K/mm3 (4.0-10.0)
[2022-06-16 16:54] LABS: INR 0.97 (0.83-1.09); PROTHROMBIN TIME (PATIENT) 11.3 SEC (9.7-13.0)
[2022-06-16 16:57] LABS: ACTIVATED PTT 33.9 SECONDS (25.2-36.5)
[2022-06-16 16:58] LABS: ALBUMIN 3.6 g/dl (3.4-5.0); BLOOD UREA NITROGEN 11.4 mg/dL (7-18); CALCIUM 9.2 mg/dL (8.5-10.1)
[2022-06-16 17:02] LABS: BILIRUBIN,TOTAL 1.1 mg/dL (0.2-1); CREATININE 0.9 mg/dL (0.55-1.3); TOT PROT 7.8 g/dl (6.4-8.2)
[2022-06-16 17:53] VITALS: BP 133/86; PULSE 73
[2022-06-16 19:02] LABS: ERYTHROCYTE SEDIMENTATION RATE 2 mm/hr (0-20)
== END 2022-06-16 19:09 | disposition home or self-care (01) ==
LOC: JER 13:29
DX: H54.7 Unspecified visual loss (principal); Z86.39 Personal history of other endocrine, nutritional and metabolic disease; Z20.822 Contact with and (suspected) exposure to COVID-19
CPT/HCPCS: 0241U-QW; 36415; 70450-TC; 80053; 80061; 83036; 85025; 85610; 85651; 85730; 86850; 86900; 86901; 93005; 93010; 99285-25